=== PATIENT | male | born 1995 | race Two or more races ===

== ENCOUNTER 2017-10-10 14:05 | Emergency (ER) | payer MEDICAID ==
[~2017-10-10] VITALS: Ht 170.2 cm; Wt 68.0 kg
[2017-10-10 14:10] VITALS: BP_SYST 120; BP_SYST 18; BP_DIAS 58
--- NOTE | 2017-10-10 14:11 | Emergency Room Report ---
History of Present Illness General Chief Complaint: Behavioral Complaint Source: Patient (Rodney Melendez) Present Illness HPI 22 yo male patient presents to ER BIB police s/p meth use. Reports patient was found running through traffic. Police report were called by local observers. Patient reports his plan is to "very slowly over time". Reports hx of schizophrenia, reports takes morphine for tx. Denies thoughts of hurting others. Reports hx of meth use, denies smoking, alcohol or other drugs. Denies past medical history. Patient is a poor historian. Denies fever, chest pain, SOB, abdominal pain. Reports he is hungry. Reports cast on right arm, states broke arm 2 weeks ago. (Rodney Melendez) Allergies: Coded Allergies: No Known Allergies (Unverified , 10/10/17) Patient History Past Medical History: see triage record Reviewed Nursing Documentation: PMH: Agreed; PSxH: Agreed (Rodney Melendez) Nursing Documentation-PMH Past Medical History: No History, Except For (Rodney Melendez) Review of Systems All Other Systems: negative except mentioned in HPI (Rodney Melendez) Physical Exam Vital Signs Date Time Temp Pulse Resp B/P (MAP) Pulse Ox O2 Delivery O2 Flow Rate FiO2 10/10/17 13:56 97.9 75 16 18/58 100 Room Air 97.9 Sp02 EP Interpretation: reviewed, normal General Appearance: well appearing, no apparent distress, alert, GCS 15, non- toxic Head: normocephalic, atraumatic, other - no bony depression, negative Brunner sign, negative Raccoon eyes ENT: hearing grossly normal, normal pharynx, no angioedema, normal voice, uvula midline, moist mucus membranes Neck: full range of motion, no bony tend Respiratory: lungs clear, normal breath sounds, no rhonchi, no respiratory distress, no accessory muscle use, no wheezing, speaking full sentences Cardiovascular #1: regular rate, rhythm, no edema Gastrointestinal: non tender, soft, no mass, non-distended, no guarding, no rebound Genitourinary: no CVA tenderness Musculoskeletal: back normal, digits/nails normal, gait/station normal, normal range of motion, non-tender Neurologic: alert, oriented x3, responsive, motor strength/tone normal, sensory intact Psychiatric: mood/affect normal Skin: no rash (Rodney Melendez) Medical Decision Making PA Attestation Dr. Montes is my supervising Physician whom patient management has been discussed with. (Rodney Melendez) Diagnostic Impression: Primary Impression: Behavioral disorder ER Course Pt. presents to the ED BIB police c/o drug use and behavioral change. Ddx considered but are not limited to drug use, alcohol use, psychosis. Vital signs: are WNL, pt. is afebrile Ordered labs and medication. CBC, CMP, Urine drug screen, Acetaminophen level, Salicylate level, serum alcohol. ER COURSE: Patient resting comfortably in bed, answering questions. Speaking with patient, do not believe he is a danger to himself or others at this time. Will not placed on 5150 hold at this time. Consult Dr. Elizabeth. Requesting sandwich. Provided with food in ER. Labs unremarkable, no elevation in WBC or LFTs Urine drug shows THC, no meth. Acetaminophen level unremarkable Salicylate level unremarkable Serum alcohol <3, WNL Patient punched a hole in the wall. Will provide Haldol in ER per Dr. Elizabeth recommendation. Patient is medically cleared. Transfer to psychiatric facility. Await PET eval. Patient sleeping comfortably, in no acute distress. Patient care transferred to Dr. Mari. Labs Test 10/10/17 15:00 White Blood Count 7.9 K/UL (4.8-10.8) Red Blood Count 4.13 M/UL (4.70-6.10) Hemoglobin 12.5 G/DL (14.2-18.0) Hematocrit 37.7 % (42.0-52.0) Mean Corpuscular Volume 91 FL (80-99) Mean Corpuscular Hemoglobin 30.3 PG (27.0-31.0) Mean Corpuscular Hemoglobin Concent 33.1 G/DL (32.0-36.0) Red Cell Distribution Width 12.0 % (11.6-14.8) Platelet Count 242 K/UL (150-450) Mean Platelet Volume 7.6 FL (6.5-10.1) Neutrophils (%) (Auto) 75.2 % (45.0-75.0) Lymphocytes (%) (Auto) 15.0 % (20.0-45.0) Monocytes (%) (Auto) 8.6 % (1.0-10.0) Eosinophils (%) (Auto) 0.7 % (0.0-3.0) Basophils (%) (Auto) 0.5 % (0.0-2.0) Sodium Level 140 MMOL/L (136-145) Potassium Level 3.9 MMOL/L (3.5-5.1) Chloride Level 104 MMOL/L (98-107) Carbon Dioxide Level 31 MMOL/L (21-32) Anion Gap 5 mmol/L (5-15) Blood Urea Nitrogen 15 mg/dL (7-18) Creatinine 0.8 MG/DL (0.55-1.30) Estimat Glomerular Filtration Rate > 60 mL/min (>60) Glucose Level 94 MG/DL (74-106) Calcium Level 9.1 MG/DL (8.5-10.1) Total Bilirubin 0.5 MG/DL (0.2-1.0) Aspartate Amino Transf (AST/SGOT) 18 U/L (15-37) Alanine Aminotransferase (ALT/SGPT) 37 U/L (12-78) Alkaline Phosphatase 157 U/L (46-116) Total Protein 6.9 G/DL (6.4-8.2) Albumin 3.8 G/DL (3.4-5.0) Globulin 3.1 g/dL Albumin/Globulin Ratio 1.2 (1.0-2.7) Salicylates Level 1.5 ug/mL (2.8-20) Urine Opiates Screen Negative (NEGATIVE) Acetaminophen Level < 2 MCG/ML (10-30) Urine Barbiturates Screen Negative (NEGATIVE) Phencyclidine (PCP) Screen Negative (NEGATIVE) Urine Amphetamines Screen Negative (NEGATIVE) Urine Benzodiazepines Screen Negative (NEGATIVE) Urine Cocaine Screen Negative (NEGATIVE) Urine Marijuana (THC) Screen Positive (NEGATIVE) Serum Alcohol < 3 mg/dL (Rodney Melendez P.A.) ER Course I received signout 22 yo M who endorsed suicidal ideation.+marijuana use only. currently not being very cooperative but endorsing current SI he told previous providers he wanted to a slow and told nursing staff he wanted to jump in front of a car pt not on a hold pending psych eval in am (Da Mari M.D.) Last Vital Signs Date Time Temp Pulse Resp B/P (MAP) Pulse Ox O2 Delivery O2 Flow Rate FiO2 10/10/17 13:56 97.9 75 16 18/58 100 Room Air 97.9 (Rodney Melendez) Rodney Melendez Oct 10, 2017 14:11 Da Mari M.D. Oct 11, 2017 04:56
[2017-10-10 15:23] LABS: BASOPHILS % (AUTO) 0.5 % (0.0-2.0); EOSINOPHILS % (AUTO) 0.7 % (0.0-3.0); HEMATOCRIT 37.7 % (42.0-52.0); HEMOGLOBIN 12.5 G/DL (14.2-18.0); MEAN CORPUSCULAR VOLUME 91 FL (80-99); MONOCYTES % (AUTO) 8.6 % (1.0-10.0); NEUTROPHILS % (AUTO) 75.2 % (45.0-75.0); PLATELET COUNT 242 K/UL (150-450); RED BLOOD COUNT 4.13 M/UL (4.70-6.10); WHITE BLOOD COUNT 7.9 K/UL (4.8-10.8)
[2017-10-10 15:24] LABS: ANION GAP 5 mmol/L (5-15); BLOOD UREA NITROGEN 15 mg/dL (7-18); CALCIUM 9.1 MG/DL (8.5-10.1); CARBON DIOXIDE 31 MMOL/L (21-32); CHLORIDE 104 MMOL/L (98-107); CREATININE 0.8 MG/DL (0.55-1.30); POTASSIUM 3.9 MMOL/L (3.5-5.1); SODIUM 140 MMOL/L (136-145)
[2017-10-10 15:28] LABS: ALANINE AMINOTRANSFERASE 37 U/L (12-78); ALBUMIN 3.8 G/DL (3.4-5.0); ALBUMIN/GLOBULIN RATIO 1.2 (1.0-2.7); ALKALINE PHOSPHATASE 157 U/L (46-116); ASPARTATE AMINO TRANSFERASE 18 U/L (15-37); BILIRUBIN,TOTAL 0.5 MG/DL (0.2-1.0)
[2017-10-10] MEDS ORDERED: Haloperidol 5mg/ml Inj IM ONE (16:00)
[2017-10-10 16:10] VITALS: BP 130/60
[2017-10-10 19:49] VITALS: BP 105/66
[2017-10-11] VITALS (7 sets, daily range): BP systolic 111–125; BP diastolic 60–76
[2017-10-11] MEDS ORDERED: Ketorolac 60mg Inj IM ONE (07:15)
[2017-10-11] MEDS ORDERED: Haloperidol 5mg/ml Inj IM ONE (08:45)
[2017-10-11] MEDS ORDERED: fluPHENAZine Decanoate 25mg Inj IM ONE (12:00)
[2017-10-11] MEDS ORDERED: Haloperidol Decanoate 50mg Inj IM ONE (13:00)
--- NOTE | 2017-10-11 23:30 | Consultation ---
DATE OF CONSULTATION: 10/11/2017 CONSULTING PHYSICIAN: Ulises Elizabeth M.D. HISTORY OF PRESENT ILLNESS: The patient is a 22-year-old male, has a history of bipolar disorder and drug abuse who has been admitted to the hospital after he is being agitated and psychotic on 10/10/2017. During the evaluation, the patient was calm, cooperative and appeared he has been after receiving antipsychotics and anxiolytics. During the evaluation, the patient was calm, cooperative. He is not endorsing any suicidal or homicidal ideations. No delusions. No AVH. He was not gravely disabled. We contacted his father who agreed to come and pick the patient up from the emergency room after work. During the hospital course today, he was calm after my evaluation. No behavioral issues. No episodes of violent behavior was noted. The patient was not an imminent danger to self or others. PAST PSYCHIATRIC HISTORY: He has a history of psychiatric disorder in the past. PAST MEDICAL HISTORY: He has a history of orthopedic surgery. ALLERGIES: No known drug allergies. SUBSTANCE ABUSE HISTORY: Significant for marijuana and crystal meth and other illicit drug use, but the patient did not disclose. MENTAL STATUS EXAMINATION: The patient is alert and oriented times self, place, and situation. Mood was neutral to dysphoric. Affect is constricted, congruent with mood. Thought process was concrete. Thought content, no suicidal or homicidal ideation. No delusions. No AVH. ASSESSMENT: AXIS I Bipolar disorder by history. Crystal meth abuse. AXIS II Deferred. AXIS III none. AXIS IV Low. AXIS V Global assessment of functioning is 50. PLAN: 1. The patient will be receiving Perphenazine Decanoate or Prolixin Decanoate and will be discharged with father. 2. He will follow up with his outpatient psychiatrist. The patient was not an imminent danger to self or others and was not gravely disabled. Therefore, he will be discharged. He does not meet the criteria for 5150 hold. Ulises Elizabeth M.D. DR: MONALISA JOB#: [id number] CC:
[2017-10-12] VITALS: BP 122/81
[2017-10-12 01:20] VITALS: BP_SYST 122; BP_SYST 130; BP_DIAS 81; BP_DIAS 86
== END 2017-10-12 01:20 | disposition home or self-care (01) ==
LOC: EDBD 14:05 → EMR 14:15
DX: F91.9 Conduct disorder, unspecified (principal); F15.10 Other stimulant abuse, uncomplicated; F20.9 Schizophrenia, unspecified
CPT/HCPCS: 36415; 80053; 80307; 80329; 85025; 96372; 99284; J1630; J1631